=== PATIENT | male | born 1955 | race Caucasian/White ===

== ENCOUNTER → 2024-06-17 | Outpatient (CLI) | payer MEDICAID, SELFPAY ==
--- NOTE | 2024-06-17 11:30 | XR_ITS ---
Examination: CT abdomen with intravenous contrast CT pelvis with intravenous contrast 2-D coronal reconstructions 2-D sagittal reconstructions Date and time of exam:June 17, 2024 1334 hours INDICATIONS: Hematuria episodes 3 months. CTDI: vol (mGy) 13.7 DLP: (mGycm) 778 Technique: Multiple axial sections of the abdomen and pelvis have been obtained. 64 slice high-resolution scanner used. 3 mm axial sections have been obtained, post intravenous injection 60 cc [id number] 2-D sagittal, coronal reconstructions obtained. Low dose protocols were performed. One or more of the following dose reduction techniques were used; automated exposure control, adjustment of the mA and/or KV according to patient size, use of iterative reconstruction technique. Findings: No focal liver or splenic lesions No gallstones No pancreatic mass No renal or ureteral calculi, no hydronephrosis No renal enhancing mass lesion Aortic calcification no aneurysmal dilatation Normal appendix Contracted urinary bladder with irregular urinary bladder wall thickening up to 13 mm Transverse prostate dimension 4.8 cm IMPRESSION: Abnormal urinary bladder wall thickening up to 13 mm Recommend urinary bladder sonography follow-up
[2024-06-17 12:28] LABS: Prostate Specific Antigen 1.45 ng/mL (0-4.00)
[2024-06-17 12:29] LABS: Anion Gap 5 (7-16); BUN/Creatinine Ratio 16 Ratio (12-20); Blood Urea Nitrogen 16 mg/dL (9-23); Calcium 9.9 mg/dL (8.3-10.6); Carbon Dioxide 30.4 mMol/L (20.0-31.0); Chloride 108 mMol/L (98-107); Glucose 98 mg/dL (74-106); Osmolality,Calculated 286 (275-295); Potassium 4.6 mMol/L (3.4-5.1); Sodium 143 mMol/L (136-145); eGFR > 60 See Note
== END | disposition home or self-care (01) ==
LOC: CCTX 11:14 → COPL 11:19
PROVIDERS: Referring Provider Urology; Visit Provider Radiology Diagnostic Radiology
DX: N32.89 Other specified disorders of bladder (principal); N40.1 Benign prostatic hyperplasia with lower urinary tract symptoms; R31.0 Gross hematuria
CPT/HCPCS: 36415; 74177; 80048; 84153; A4649; Q9967